=== PATIENT | female | born 1935 | race Caucasian/White ===

== ENCOUNTER → 2016-12-15 | Outpatient (CLI) | payer OTHER, MEDICARE ==
[~2016-12-15] MED LIST: ASPEC81 PO; CALC750T PO; FURO40TA3 PO; MCRK20 PO; PRLSR20 PO
[2016-12-15 13:27] LABS: BASO % 0.5 %; BASO ABS # 0.03 K/uL (0-0.2); COMPLETE YES; EOS % 1.5 %; HEMATOCRIT 42.5 % (37-47); IG% 0.2 %; LYMPH % 35.5 %; LYMPH ABS # 1.95 K/uL (1.2-3.4); MEAN CORPUSCULAR HEMOGLOBIN 30.7 pg (25-34); MEAN CORPUSCULAR HGB CONC 33.4 g/dl (32-36); MEAN PLATELET VOLUME 10.8 fL (7.4-10.4); MONO % 8.7 %; NEUT % 53.6 %; PLATELET COUNT 264 K/uL (130-400); RED BLOOD COUNT 4.62 M/uL (4.2-5.4); WHITE BLOOD COUNT 5.49 K/uL (4.8-10.8)
[2016-12-15 13:54] LABS: ALT/SGPT 24 U/L (12-78); AST/SGOT 17 U/L (15-37); BLOOD UREA NITROGEN 17 mg/dl (7-18); BUN/CREATININE RATIO 20.5 (10-20); CARBON DIOXIDE 29 mmol/L (21-32); CHLORIDE 108 mmol/L (98-107); CREATININE 0.84 mg/dl (0.60-1.20); GLUCOSE 90 mg/dl (70-99); POTASSIUM 3.9 mmol/L (3.5-5.1); SODIUM 144 mmol/L (136-145)
[2016-12-15 14:04] LABS: ALKALINE PHOSPHATASE 53 U/L (45-117); CHOLESTEROL 231 mg/dl (0-200); CHOLESTEROL/HDL RATIO 3.2; HDL CHOLESTEROL 72 mg/dl; TRIGLYCERIDES 125 mg/dl (0-150); VERY LOW DENSITY LIPOPROT CALC 25 mg/dl
== END | disposition home or self-care (01) ==
LOC: C.LABSPEC 12:37
PROVIDERS: ATTEND Internal Medicine
DX: E78.5 Hyperlipidemia, unspecified (principal); M19.90 Unspecified osteoarthritis, unspecified site; E55.9 Vitamin D deficiency, unspecified; R60.9 Edema, unspecified

== ENCOUNTER → 2016-12-19 | Outpatient (CLI) | payer OTHER, MEDICARE | END | disposition home or self-care (01) | LOC: C.LABSPEC 14:54 | PROVIDERS: ATTEND Internal Medicine | DX: Z12.11 Encounter for screening for malignant neoplasm of colon (principal) ==

== ENCOUNTER → 2017-01-12 | Outpatient (CLI) | payer OTHER, MEDICARE ==
[~2017-01-12] MED LIST changes: -PRLSR20 PO
--- NOTE | 2017-01-13 13:08 | MAMMOGRAPHY REPORT ---
BILATERAL DIGITAL SCREENING MAMMOGRAM WITH CAD: 01/12/2017 CLINICAL HISTORY: Routine screening. TECHNIQUE: Bilateral CC and MLO views were obtained. Current study was also evaluated with a Comput er Aided Detection (CAD) system. COMPARISON: Comparison is made to exams dated: 01/10/2016 mammogram, 05/18/2014 mammogram, 03/08/2013 m ammogram, 01/06/2012 mammogram, 10/14/2010 mammogram, and 10/10/2009 mammogram - [facility]. BREAST COMPOSITION: There are scattered areas of fibroglandular density in both breasts. FINDINGS: There are mild vascular calcifications and scattered stable benign-appearing microcalcific ations in the breasts. A focal asymmetry in the upper outer anterior left breast is stable in size dating back to at least 08/24/2007, therefore likely benign. There is also stable left subareolar a symmetry. No new suspicious mass, architectural distortion or cluster of microcalcifications is see n. IMPRESSION: ACR BI-RADS CATEGORY 1: NEGATIVE There is no mammographic evidence of malignancy. A 1 year screening mammogram is recommended. The p atient will receive written notification of the results. Approximately 10% of breast cancers are not detected with mammography. A negative mammographic repor t should not delay biopsy if a clinically suggestive mass is present. Graciela Delacruz M.D. ay/:01/12/2017 16:25:39 Supervisor Process Testing: Angie SHERMAN)([place]), [facility] letter sent: Normal 1/2 BI-RADS Code: ACR BI-RADS Category 1: Negative
== END | disposition home or self-care (01) ==
LOC: C.MAMM 14:34
PROVIDERS: ATTEND Internal Medicine
DX: Z12.31 Encounter for screening mammogram for malignant neoplasm of breast (principal)

== ENCOUNTER → 2017-03-03 | Outpatient (CLI) | payer OTHER, MEDICARE ==
[2017-03-03 14:36] LABS: THYROID STIMULATING HORMONE 1.25 uIu/ml (0.300-4.500)
== END | disposition home or self-care (01) ==
LOC: C.LABSPEC 12:13
PROVIDERS: ATTEND Internal Medicine
DX: E03.9 Hypothyroidism, unspecified (principal)

== ENCOUNTER → 2017-06-25 | Outpatient (CLI) | payer OTHER, MEDICARE ==
[2017-06-25 13:16] LABS: BLOOD UREA NITROGEN 14 mg/dl (7-18); BUN/CREATININE RATIO 18.2 (10-20); CALCIUM 8.8 mg/dl (8.5-10.1); CARBON DIOXIDE 27 mmol/L (21-32); CHLORIDE 109 mmol/L (98-107); CREATININE 0.76 mg/dl (0.60-1.20); GLUCOSE 90 mg/dl (70-99); SODIUM 142 mmol/L (136-145)
== END | disposition home or self-care (01) ==
LOC: C.LABSPEC 12:17
PROVIDERS: ATTEND Internal Medicine
DX: E03.9 Hypothyroidism, unspecified (principal); R60.9 Edema, unspecified

== ENCOUNTER → 2018-01-05 | Outpatient (CLI) | payer OTHER, MEDICARE ==
[2018-01-05 12:47] LABS: BASO % 0.7 %; BASO ABS # 0.04 K/uL (0-0.2); EOS % 1.1 %; EOS ABS # 0.06 K/uL (0-0.5); HEMATOCRIT 43.2 % (37-47); HEMOGLOBIN 14.4 g/dL (12.0-16.0); IG# 0.03 K/uL (0.00-0.02); LYMPH % 37.6 %; LYMPH ABS # 2.02 K/uL (1.2-3.4); MEAN CELL VOLUME 93.5 fL (80-100); MEAN CORPUSCULAR HEMOGLOBIN 31.2 pg (25-34); MEAN CORPUSCULAR HGB CONC 33.3 g/dl (32-36); MEAN PLATELET VOLUME 10.3 fL (7.4-10.4); MONO % 9.7 %; MONO ABS # 0.52 K/uL (0.11-0.59); NEUT % 50.3 %; PLATELET COUNT 299 K/uL (130-400); RED CELL DISTRIBUTION WIDTH CV 13.7 % (11.5-14.5); RED CELL DISTRIBUTION WIDTH SD 46.8 fL (36.4-46.3); WHITE BLOOD COUNT 5.37 K/uL (4.8-10.8)
[2018-01-05 12:58] LABS: ALBUMIN 3.6 gm/dl (3.4-5.0); ALT/SGPT 26 U/L (12-78); AST/SGOT 18 U/L (15-37); BLOOD UREA NITROGEN 12 mg/dl (7-18); CALCIUM 8.9 mg/dl (8.5-10.1); CARBON DIOXIDE 29 mmol/L (21-32); CHOLESTEROL 213 mg/dl (0-200); CREATININE 0.89 mg/dl (0.60-1.20); GLUCOSE 88 mg/dl (70-99); POTASSIUM 3.9 mmol/L (3.5-5.1); SODIUM 141 mmol/L (136-145)
[2018-01-05 13:08] LABS: ALKALINE PHOSPHATASE 55 U/L (45-117); LDL CHOLESTEROL (DIRECT) 139 mg/dl; TOTAL PROTEIN 7.2 gm/dl (6.4-8.2)
== END | disposition home or self-care (01) ==
LOC: C.LABSPEC 12:25
PROVIDERS: ATTEND Internal Medicine
DX: R60.0 Localized edema (principal); E78.5 Hyperlipidemia, unspecified; M19.90 Unspecified osteoarthritis, unspecified site; E03.9 Hypothyroidism, unspecified; E55.9 Vitamin D deficiency, unspecified

== ENCOUNTER 2019-04-05 17:30 | Inpatient (IN) ==
[2019-04-05] MEDS ORDERED: ONDANSETRON INJ 2 MG/ML 2 ML VIAL IV STA (17:56)
[2019-04-05] MEDS ORDERED: MoRPHine SULFATE 4 MG/ML 1 ML CARP\\VIAL IV PRN (17:56)
[2019-04-05] MEDS ORDERED: SODIUM CHLORIDE 0.9% 1000ML 1,000 ML IV SCH (18:00)
[2019-04-05 18:28] LABS: Basophils # (auto) 0.02 K/uL (0-0.2); Basophils % (auto) 0.3 %; Eosinophils # (auto) 0.08 K/uL (0-0.5); Eosinophils % (auto) 1.1 %; Hematocrit (blood only) 38.6 % (37-47); Hemoglobin 12.9 g/dL (12.0-16.0); Immature Granulocytes # (auto) 0.04 K/uL (0.00-0.02); Immature Granulocytes % (auto) 0.5 %; Lymphocytes # (auto) 1.53 K/uL (1.2-3.4); Lymphocytes % (auto) 20.6 %; Mean Corpuscular Hgb Conc 33.4 g/dL (32-36); Mean Corpuscular Volume 92.8 fL (80-100); Mean Platelet Volume 9.7 fL (7.4-10.4); Monocytes # (auto) 0.75 K/uL (0.11-0.59); Monocytes % (auto) 10.1 %; Neutrophils # (auto) 4.99 K/uL (1.4-6.5); Neutrophils % (auto) 67.4 %; Platelet Count 340 K/uL (130-400); RDW Coefficient of Variation 14.7 % (11.5-14.5); Red Blood Count 4.16 M/uL (4.2-5.4); White Blood Count 7.41 K/uL (4.8-10.8)
--- NOTE | 2019-04-05 18:41 | History & Physical Report ---
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 Comfort measures with intravenous morphine as needed and troll antiemetics as needed. Oncology consultation. Consider hospice consultation tomorrow Present on Admission?: Yes (2) Intractable pain: Due to pancreatic cancer. Parenteral narcotics as needed for pain control Present on Admission?: Yes (3) DVT prophylaxis: Lovenox subcu (4) DNR (do not resuscitate): Per patient and family request History of Present Illness Chief Complaint: Back pain, anorexia, weight loss Primary Care Provider: Esau Malloy MD 83-year-old female with a history of pancreatic cancer. She underwent a Whipple's procedure in [place] in January of this year. She has not felt well since that time and has lost 40 pounds over the past several months. She has had progressively worsening mid back pain with anorexia and nausea. 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 She presents to the ED for pain control measures and will be placed in observation status with IV fluids and parenteral narcotics for pain control measures. Oncology consultation has been requested. Hospice consultation can be obtained tomorrow. She is a DNR patient. Allergies Allergy/AdvReac Type Severity Reaction Status Date / Time Sulfa (Sulfonamide Allergy Intermediate Rash Verified 04/05/19 18:03 Antibiotics) grass pollen-perennial rye, Allergy Unknown GRASS Verified 04/05/19 18:03 standar POLLEN-MILD ASTHMA latex Allergy Unknown STUFFY Verified 04/05/19 18:03 NOSE, SWOLLEN EYES cat dander Allergy Sneezing Verified 04/05/19 18:03 ciprofloxacin [From Cipro] AdvReac Weakness Verified 04/05/19 18:03 Home Medications Home Medications Medication Instructions Recorded Confirmed Type docusate sodium 100 mg PO BID 02/02/19 04/05/19 History Creon 1 cap PO AC 03/02/19 04/05/19 History acetaminophen 1,000 mg PO Q6H PRN 03/02/19 04/05/19 History Past Med/Surg History Social History Preferred Language: Japanese Communication Ability: Effective Beliefs That Will Affect Care: None Current Living Situation: Significant Other Feels Safe at Home: Yes Smoking Status: Never smoker Second Hand Exposure: No Hx Alcohol Use: No Hx Substance Use: No Review of Systems Review of Systems: Constitutional-no fever or chills. Weight loss, anorexia, malaise ENT-no blurred vision, no double vision, no epistaxis, no sore throat Respiratory-no cough, no wheezing, no shortness of breath Cardiac-no palpitations, no chest pain, no syncope GI-no diarrhea, melena, hematochezia. She has had some intermittent nausea and vomiting -no urinary retention, no urinary incontinence, no dysuria, no hematuria Musculoskeletal-no joint pain, no muscle tenderness Skin-no bruising, no rashes, no pruritus Neuro-no isolated weakness, no paresthesia, no weakness Psych-no depression, no anxiety Physical Exam Physical Exam: General-alert and oriented x3, no fevers, no chills HEENT-head atraumatic and normocephalic, TMs intact bilaterally, pupils equal and reactive to light, extraocular muscles intact Neck-no lymphadenopathy or thyromegaly, trachea midline Chest-clear to auscultation percussion. No rales wheezing or rhonchi Cardiac-regular rate and rhythm, normal S1 and S2, no murmurs Abdomen-normal bowel sounds, no hepatosplenomegaly. Some bloating. Mild epigastric discomfort. No masses rebound or guarding Extremities-no cyanosis, clubbing, or edema Neuro-cranial nerves II through XII intact, motor and sensory function within normal limits, strength symmetrical , no focal deficits Psych-depressed affect Results & Data Vital Signs (Past 12 Hours) Vital Signs Temp Pulse Resp BP Pulse Ox 04/05/19 17:57 95 04/05/19 17:35 36.2 C L 88 16 132/76 95 Diagnostic Findings Laboratory Results WBC 7.41 K/uL (4.8-10.8) 04/05/19 18:05 RBC 4.16 M/uL (4.2-5.4) L 04/05/19 18:05 Hgb 12.9 g/dL (12.0-16.0) 04/05/19 18:05 Hct 38.6 % (37-47) 04/05/19 18:05 MCV 92.8 fL (80-100) 04/05/19 18:05 MCH 31.0 pg (25-34) 04/05/19 18:05 MCHC 33.4 g/dL (32-36) 04/05/19 18:05 RDW Std Deviation 50.0 fL (36.4-46.3) H 04/05/19 18:05 RDW Coeff of Dennis 14.7 % (11.5-14.5) H 04/05/19 18:05 Plt Count 340 K/uL (130-400) 04/05/19 18:05 MPV 9.7 fL (7.4-10.4) 04/05/19 18:05 Immature Gran % (Auto) 0.5 % 04/05/19 18:05 Neut % (Auto) 67.4 % 04/05/19 18:05 Lymph % (Auto) 20.6 % 04/05/19 18:05 [place] % (Auto) 10.1 % 04/05/19 18:05 Eos % (Auto) 1.1 % 04/05/19 18:05 Baso % (Auto) 0.3 % 04/05/19 18:05 Immature Gran # (Auto) 0.04 K/uL (0.00-0.02) H 04/05/19 18:05 Neut # (Auto) 4.99 K/uL (1.4-6.5) 04/05/19 18:05 Lymph # (Auto) 1.53 K/uL (1.2-3.4) 04/05/19 18:05 [place] # (Auto) 0.75 K/uL (0.11-0.59) H 04/05/19 18:05 Eos # (Auto) 0.08 K/uL (0-0.5) 04/05/19 18:05 Baso # (Auto) 0.02 K/uL (0-0.2) 04/05/19 18:05 PG Care Time/CCT Total # of Minutes Spent Total Time Spent with Patient: Total time spent is greater than 50% in coordination of care (as documented) at patient's floor/unit and/or counseling patient:
[2019-04-05 18:43] LABS: Alanine Aminotransferase 40 U/L (12-78); Aspartate Aminotransferase 24 U/L (15-37); BUN Creatinine Ratio 23.3 (10-20); Blood Urea Nitrogen 14 mg/dl (7-18); Calcium 9.2 mg/dl (8.5-10.1); Carbon Dioxide 27 mmol/L (21-32); Chloride 107 mmol/L (98-107); Creatinine Clr Calc Pharmacy 65.2 ml/min; Est GFR (African American) 100.2; Est GFR (Non-African American) 86.4; Glucose 102 mg/dl (70-99); Magnesium 2.2 mg/dl (1.8-2.4); Potassium 3.8 mmol/L (3.5-5.1); Sodium 141 mmol/L (136-145)
[2019-04-05 18:48] LABS: Albumin Globulin Ratio 0.8 (0.9-2); Alkaline Phosphatase 91 U/L (45-117); Bilirubin,Total 0.4 mg/dl (0.2-1); Globulin 3.7 gm/dl (2.5-4.0); Total Protein 6.7 gm/dl (6.4-8.2); Troponin I < 0.015 ng/ml (0-0.045)
--- NOTE | 2019-04-05 19:04 | Emergency Department Note ---
Entered by Cinda Blanc acting as a scribe for Elias Cardona MD History of Present Illness General Chief complaint: Abdominal Pain Stated complaint: PAIN IN ABDOMEN AROUND TO BACK Time Seen by Provider: 04/05/19 17:48 Source: patient History of Present Illness Onset (ago): month(s) Location: abdomen Radiation: back Pain Consistency: + other (worsening) Maximum Pain Intensity: 8 Current Pain Intensity: 8 Associated symptoms: + loss of appetite, + nausea/vomiting and + other (+diarrhea; -urinary symptoms); no fever/chills and no shortness of breath The patient is an 83 year old female who presents to the Emergency Room with complaints of worsening abdominal pain that she rates as 8/10 in severity. The patient states that the abdominal pain radiates to her back. The patient also notes lack of appetite, vomiting, and diarrhea. The patient notes prior tumor removal for pancreatic cancer followed by whipple procedure in January. The patient's primary care provider issued a CT scan for her abdomen yesterday. The patient denies fever, shortness of breath, or urinary symptoms. The patient notes of a cholecystectomy in the past. Home Medications Home Medications Medication Instructions Recorded Confirmed Type docusate sodium 100 mg PO BID 02/02/19 04/05/19 History Creon 1 cap PO AC 03/02/19 04/05/19 History acetaminophen 1,000 mg PO Q6H PRN 03/02/19 04/05/19 History Allergies Allergy/AdvReac Type Severity Reaction Status Date / Time Sulfa (Sulfonamide Allergy Intermediate Rash Verified 04/05/19 18:03 Antibiotics) grass pollen-perennial rye, Allergy Unknown GRASS Verified 04/05/19 18:03 standar POLLEN-MILD ASTHMA latex Allergy Unknown STUFFY Verified 04/05/19 18:03 NOSE, SWOLLEN EYES cat dander Allergy Sneezing Verified 04/05/19 18:03 ciprofloxacin [From Cipro] AdvReac Weakness Verified 04/05/19 18:03 Past Med/Surg History Medical History Intractable pain (Acute) Local recurrence of pancreatic cancer (Acute) Arthritis GERD (gastroesophageal reflux disease) History of pancreatic cancer HAD WHIPPLES PROCEDURE - [facility]; WILL BE ON CHEMO AFTER PORT INSERTION Hypothyroidism Surgical History History of hand surgery LEFT THUMB History of hysterectomy History of knee replacement BOTH History of pancreatic surgery History of repair of rectocele Hx of arthroscopic knee surgery Hx of hemorrhoidectomy Hx of shoulder surgery BOTH Hx of tonsillectomy Family History Father Family history of diabetes mellitus Other Heart disease Social History Preferred Language: Guatemalan Communication Ability: Effective Beliefs That Will Affect Care: None Current Living Situation: Significant Other Feels Safe at Home: Yes Smoking Status: Never smoker Second Hand Exposure: No Hx Alcohol Use: No Hx Substance Use: No Review of Systems See HPI for pertinent positives & negatives. and A total of 10 systems reviewed and were otherwise negative Physical Exam Vital Signs Vital Signs - 24 hr 04/05/19 17:35 04/05/19 17:57 Temperature 36.2 C L Temperature Source Oral Sepsis Recent Fever Within 48 Hours No Sepsis Action Taken by Nursing No Action Required Pulse Rate 88 Respiratory Rate 16 Respiratory Effort / Characteristics Non-Labored Spontaneous Respiratory Depth Normal Blood Pressure 132/76 Blood Pressure Mean 94 Blood Pressure Position Lying Pulse Oximetry 95 95 Oxygen Delivery Method Room Air Room Air GENERAL: Patient is in no acute distress. HEENT: No acute trauma, normocephalic atraumatic, mucous membranes moist, no nasal congestion, no scleral icterus. NECK: No stridor, no adenopathy, no meningismus, trachea is midline. LUNGS: Clear to auscultation bilaterally, no wheeze, no rhonchi, breath sounds equal. HEART: Without murmurs gallops or rubs, regular rate and rhythm. ABDOMEN: Soft, moderately tender in epigastric region, bowel sounds positive, no hernias, no peritonitis. Surgical wounds healing well. EXTREMITIES: No cyanosis or edema, full range of motion of all the joints without pain or difficulty, no signs for acute trauma. NEUROLOGIC: Oriented x 3, no acute motor or sensory deficits, no focal weakness. SKIN: No rash, no jaundice, no diaphoresis. Course 1749: Past medical records reviewed. The patient was evaluated in room B8. A complete history and physical exam was performed. 1804: I discussed the case with Dr. Reed-Hematology. We agreed that the patient should be further evaluated. 1807: I discussed the patient's case with Dr. Carpenter-[facility] Hospitalist. agrees to further evaluate patient. Consultations Consultation #1: I discussed the case with Dr. Reed-Hematology. We agreed that the patient should be further evaluated. Time: 18:05 Consultation #2: I discussed the patient's case with Dr. Carpenter-[facility] Hospitalist. agrees to further evaluate patient. Time: 18:08 Administered Medications Discontinued Medications Sodium Chloride (Nss 1000ml) 1,000 mls @ 999 mls/hr IV .Q1H1M CH[place]STIANA Stop: 04/05/19 19:00 Last Infusion: 04/05/19 19:54 Dose: 0 mls/hr Documented by: [id number] Admin: 04/05/19 18:47 Dose: 999 mls/hr Documented by: [id number] Morphine Sulfate (Morphine Sulfate) 4 mg IV Q30M PRN PRN Reason: Pain Stop: 04/19/19 17:55 Last Admin: 04/05/19 18:48 Dose: 4 mg Documented by: [id number] Ondansetron HCl (Zofran) 4 mg IV NOW STA Stop: 04/05/19 17:57 Last Admin: 04/05/19 18:48 Dose: 4 mg Documented by: [id number] Medical Decision Making Differential Diagnosis Differential diagnoses include dehydration, bowel obstruction, bowel ischemia, recurrent cancer, abscess, urinary tract infection, pancreatitis, bowel rupture, renal failure, liver failure. Medical Records Attestation: I reviewed the patient's medical records. Home Medications Current Medication List: was personally reviewed by me Laboratory Data Attestation: I reviewed the patient's lab results. Result diagrams: 04/05/19 18:05 04/05/19 18:05 Lab Results 04/05/19 04/05/19 Range/Units 18:05 18:05 WBC 7.41 (4.8-10.8) K/uL RBC 4.16 L (4.2-5.4) M/uL Hgb 12.9 (12.0-16.0) g/dL Hct 38.6 (37-47) % MCV 92.8 (80-100) fL MCH 31.0 (25-34) pg MCHC 33.4 (32-36) g/dL RDW Std Deviation 50.0 H (36.4-46.3) fL RDW Coeff of Dennis 14.7 H (11.5-14.5) % Plt Count 340 (130-400) K/uL MPV 9.7 (7.4-10.4) fL Immature Gran % (Auto) 0.5 % Neut % (Auto) 67.4 % Lymph % (Auto) 20.6 % [place] % (Auto) 10.1 % Eos % (Auto) 1.1 % Baso % (Auto) 0.3 % Immature Gran # (Auto) 0.04 H (0.00-0.02) K/uL Neut # (Auto) 4.99 (1.4-6.5) K/uL Lymph # (Auto) 1.53 (1.2-3.4) K/uL [place] # (Auto) 0.75 H (0.11-0.59) K/uL Eos # (Auto) 0.08 (0-0.5) K/uL Baso # (Auto) 0.02 (0-0.2) K/uL Sodium 141 (136-145) mmol/L Potassium 3.8 (3.5-5.1) mmol/L Chloride 107 (98-107) mmol/L Carbon Dioxide 27 (21-32) mmol/L Anion Gap 7.0 (3-11) BUN 14 (7-18) mg/dl Creatinine 0.58 L (0.6-1.2) mg/dl Est Cr Clr Drug Dosing 65.2 ml/min Est GFR ( Amer) 100.2 Est GFR (Non-Af Amer) 86.4 BUN/Creatinine Ratio 23.3 H (10-20) Glucose 102 H (70-99) mg/dl Calcium 9.2 (8.5-10.1) mg/dl Magnesium 2.2 (1.8-2.4) mg/dl Total Bilirubin 0.4 (0.2-1) mg/dl AST 24 (15-37) U/L ALT 40 (12-78) U/L Alkaline Phosphatase 91 (45-117) U/L Troponin I < 0.015 (0-0.045) ng/ml Total Protein 6.7 (6.4-8.2) gm/dl Albumin 3.0 L (3.4-5.0) gm/dl Globulin 3.7 (2.5-4.0) gm/dl Albumin/Globulin Ratio 0.8 L (0.9-2) Lipase 21 L (73-393) U/L ECG Data Indication: abdominal pain Rate (beats per minute): 65 Rhythm: normal sinus Findings: + RBBB (incomplete) and + T-wave inversion (anterior and lateral leads) Comparison ECG Date: from (06/27/16) Change: no significant change Blood Pressure Blood Pressure Findings: Elevated blood pressure Blood Pressure Disposition: further management by hospitalist MDM Narrative There is no leukocytosis or concerning anemia. No significant electrolyte abnormality or kidney failure. No elevation to the liver enzymes. Lipase was not elevated. Cardiac enzyme testing x1 is not consistent with acute cardiac injury. EKG shows a sinus rhythm, no acute ischemia. No change when compared to previous EKGs. On exam, the patient was tender in the epigastrium, she was not febrile, she was not toxic. I was able to review the CT scans that were performed yesterday. Patient appears to have recurrence of her cancer with thrombosis of the superior mesenteric vein. The chest CT did not show pneumonia or any evidence for metastatic disease. Patient received IV saline, she was given IV morphine for pain, IV Zofran for nausea. I spoke with Dr. Garcia of hematology oncology. Patient is to be hospitalized for pain management and further work-up. How to care for this recurrent cancer and her findings on CT is needed with this hospital stay. There was no emergent need for transfer to a tertiary care center. The patient was informed of her results, I did speak with case management. The on-call hospitalist was consulted. Impression & Plan Abdominal pain, epigastric, Vomiting, Dehydration, Pancreatic cancer Discharge Plan Visit Data Chief Complaint: Abdominal Pain Stated Complaint: PAIN IN ABDOMEN AROUND TO BACK ED Provider: Elias Cardona Discharge Problem: Abdominal pain, epigastric, Vomiting, Dehydration, Pancreatic cancer Patient Disposition: Being Evaluated by Hospitalist Discharge Instructions Interventions: ED Discharge Assessment Last Done: 04/05/19 19:46 Discharge Problem: Vomiting Qualifiers: Vomiting type: unspecified Vomiting Intractability: non-intractable Nausea presence: with nausea Qualified Code(s): R11.2 - Nausea with vomiting, unspecified Pancreatic cancer Qualifiers: Pancreatic malignancy location: unspecified Qualified Code(s): C25.9 - Malignant neoplasm of pancreas, unspecified The scribe's documentation has been prepared under my direction and personally reviewed by me in its entirety. I confirm that the note above accurately reflects all work, treatment, procedures, and medical decision making performed by me.
[2019-04-05] MEDS ORDERED: ALUMINUM/MAGNESIUM SUSP 30 ML UDC PO PRN (20:00)
[2019-04-05] MEDS ORDERED: ACETAMINOPHEN 325 MG TAB PO PRN (20:00)
[2019-04-05] MEDS ORDERED: ONDANSETRON INJ 2 MG/ML 2 ML VIAL IV PRN (20:00)
[2019-04-05] MEDS: MoRPHine SULFATE 2 MG/ML CARP IV PRN ×2 (20:29→23:22)
[2019-04-05] MEDS: SODIUM CHLORIDE 0.9% 1000ML 1,000 ML IV SCH (20:29)
[2019-04-05 20:45] LABS: Prothrombin Time 10.5 Seconds (9.0-12.0)
[2019-04-05 20:53] LABS: Albumin Level 2.9 gm/dl (3.4-5.0); BUN Creatinine Ratio 24.3 (10-20); Calcium 8.7 mg/dl (8.5-10.1); Creatinine Clr Calc Pharmacy 75.6 ml/min; Est GFR (African American) 105.2; Est GFR (Non-African American) 90.8; Potassium 3.6 mmol/L (3.5-5.1)
[2019-04-05 20:56] LABS: Albumin Globulin Ratio 0.9 (0.9-2); Bilirubin,Total 0.3 mg/dl (0.2-1); Globulin 3.3 gm/dl (2.5-4.0); Total Protein 6.2 gm/dl (6.4-8.2)
[2019-04-05] MEDS ORDERED: ENOXAPARIN INJ 40 MG/0.4 ML SYR SQ SCH (21:00)
[2019-04-05] MEDS: DOCUSATE SODIUM 100 MG CAP PO SCH (23:22)
[2019-04-06] MEDS ORDERED: HEPARIN 100 UNIT/ML 5ML FLUSH FLUSH PRN (00:22)
[2019-04-06] MEDS: MoRPHine SULFATE 2 MG/ML CARP IV PRN ×5 (02:23→20:38)
[2019-04-06 02:48] LABS: Appearance Urine Clear (Clear); Bacteria Urine Automated Negative (Negative); Bilirubin Urine Negative (Negative); Blood Urine Negative (Negative); Color Urine Yellow; Epithelial Cell Urine Auto >30 /lpf (0-5); Glucose Urine UA Negative (Negative); Ketones Urine Trace (Negative); Leukocyte Esterase Urine Trace (Negative); Nitrite Urine Negative (Negative); Protein Urine Negative (Negative); RBC Urine Automated 0-4 /hpf (0-4); Urobilinogen Urine Negative (Negative)
--- NOTE | 2019-04-06 07:41 | Hospitalist Progress Note ---
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 Comfort measures with intravenous morphine as needed and troll antiemetics as needed. Oncology consultation. Consider hospice consultation tomorrow (2) Intractable pain: Due to pancreatic cancer. Parenteral narcotics as needed for pain control (3) DVT prophylaxis: Lovenox subcu (4) DNR (do not resuscitate): Per patient and family request Results & Data Vital Signs (Past 12 Hours) Vital Signs Temp Pulse Resp BP Pulse Ox 04/06/19 03:49 36.5 C 68 18 128/72 94 04/05/19 23:04 36.5 C 77 18 147/75 H 94 04/05/19 20:00 36.4 C L 76 18 175/68 H 92 PG Care Time/CCT Total # of Minutes Spent Total Time Spent with Patient: Total time spent is greater than 50% in coordination of care (as documented) at patient's floor/unit and/or counseling patient:
[2019-04-06] MEDS: DOCUSATE SODIUM 100 MG CAP PO SCH ×2 (08:45→20:41)
[2019-04-06] MEDS: PANCREAZE (LIPASE 10,500U) CAP PO SCH ×3 (08:46→17:22)
[2019-04-06] MEDS: SODIUM CHLORIDE 0.9% 1000ML 1,000 ML IV SCH ×2 (09:07→20:40)
--- NOTE | 2019-04-06 09:28 | Oncology Consultation ---
Date of Consultation April 06, 2019 Assessment & Plan (1) Abdominal pain, epigastric: I reviewed her scans on Thursday when I saw the reports. The rate at which this soft tissue grew is very surprising, given that she had surgery less than 3 months ago. I had wondered whether it might represent post-surgical change or some other benign finding. However, we wouldn't expect vascular invasion by a benign process. Also, her persistent and worsening pain argues in favor of this being cancer. Her repeat CA 19-9, which is pending, will also be helpful in this regard. 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 This may be related to direct extension of tumor. The optimal management of these thromboses is not clear, particularly more chronic ones. This one is more acute, as it clearly was not present a few months ago, and it may be part of the source of her pain. There is better evidence for anticoagulating acute mesenteric thromboses, even those asssociated with cancers. She has no contraindications to AC so I would start her on full anticoagulation. I also would work on her pain regimen and consider a palliative care consult. She would be open to trying chemotherapy, so I will work on these arrangements as an outpatient. Present on Admission?: Yes History of Present Illness Reason for Consultation: Pancreatic cancer Abdominal Pain SMV thrombosis Attending Physician: Dariusz Walton MD History of Present Illness Ms. Ayoub is an 83 year old woman with a history of pancreatic cancer. She came to attention earlier this year with abdominal pain. A CT revealed a mass in her pancreatic head that appeared resectable. On 01/25/19, she underwent a Whipple at [facility] [place]. 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 All final margins were negative. I met her on 03/04/19 to discuss adjuvant chemotherapy. However, at that time her CA 19-9 was still over 100. As a result, I was concerned that she had persistent or recurrent disease. I asked her to return with repeat scans in about 4 weeks. 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 She called my office yesterday complaining of progressive abdominal pain, poor PO intake, and generalized weakness. I directed her to the ER. She is feeling better this morning. Her pain is better controlled with morphine. The pain has persisted since surgery and so she just assumed it was post-operative pain. She denies any bleeding anywhere. She does have some nausea, particularly when she eats. Allergies Allergy/AdvReac Type Severity Reaction Status Date / Time Sulfa (Sulfonamide Allergy Intermediate Rash Verified 04/05/19 18:03 Antibiotics) grass pollen-perennial rye, Allergy Unknown GRASS Verified 04/05/19 18:03 standar POLLEN-MILD ASTHMA latex Allergy Unknown STUFFY Verified 04/05/19 18:03 NOSE, SWOLLEN EYES cat dander Allergy Sneezing Verified 04/05/19 18:03 ciprofloxacin [From Cipro] AdvReac Weakness Verified 04/05/19 18:03 Home Medications Home Medications Medication Instructions Recorded Confirmed Type docusate sodium 100 mg PO BID 02/02/19 04/05/19 History Creon 1 cap PO AC 03/02/19 04/05/19 History acetaminophen 1,000 mg PO Q6H PRN 03/02/19 04/05/19 History Patient History Medical History Intractable pain (Acute) Local recurrence of pancreatic cancer (Acute) Arthritis GERD (gastroesophageal reflux disease) History of pancreatic cancer HAD WHIPPLES PROCEDURE - AYANNA; WILL BE ON CHEMO AFTER PORT INSERTION Hypothyroidism Surgical History History of hand surgery LEFT THUMB History of hysterectomy History of knee replacement BOTH History of pancreatic surgery History of repair of rectocele Hx of arthroscopic knee surgery Hx of hemorrhoidectomy Hx of shoulder surgery BOTH Hx of tonsillectomy Family History Father Family history of diabetes mellitus Other Heart disease Social History Preferred Language: Citizen Of [place] Communication Ability: Effective Chemistry Lab Instructor Required: No Beliefs That Will Affect Care: None Current Living Situation: Family Feels Safe at Home: Yes Safety Concerns: Feels Safe At This Time Smoking Status: Never smoker Do You Dip or Chew Tobacco: No Second Hand Exposure: No Tobacco Cessation Education Requested by Patient: No Hx Alcohol Use: No Hx Substance Use: No Review of Systems Constitutional: + fatigue, + weakness and + anorexia Respiratory: no cough and no dyspnea Cardiovascular: no chest pain and no edema Gastrointestinal: as per Subjective / HPI Genitourinary: no dysuria and no urinary frequency Musculoskeletal: no back pain Neurologic: + generalized weakness; no headache(s) Physical Exam Constitutional: + thin and comfortable; no acute distress Eyes: + anicteric sclerae and EOM intact bilaterally ENMT: external ear and nose normal, oropharynx normal Respiratory: normal respiratory effort, lungs clear to auscultation Cardiovascular: RRR, no murmur, no edema Gastrointestinal (Abdomen): Inspection/Auscultation: normal bowel sounds; ab domen not distended Percussion/Palpation: abdomen soft; abdomen nontender Skin: no rashes, warm and dry Psychiatric: A+Ox3, euthymic affect Results & Data Vital Signs (Past 12 Hours) Vital Signs Temp Pulse Resp BP Pulse Ox 04/06/19 07:42 36.7 C 74 18 138/73 95 04/06/19 03:49 36.5 C 68 18 128/72 94 04/05/19 23:04 36.5 C 77 18 147/75 H 94 Laboratory Results Abnormal lab results 04/05/19 04/05/19 04/05/19 Range/Units 18:05 18:05 20:27 RBC 4.16 L (4.2-5.4) M/uL RDW Std Deviation 50.0 H (36.4-46.3) fL RDW Coeff of Dennis 14.7 H (11.5-14.5) % Immature Gran # (Auto) 0.04 H (0.00-0.02) K/uL Grainger # (Auto) 0.75 H (0.11-0.59) K/uL Chloride 109 H (98-107) mmol/L Creatinine 0.58 L 0.50 L (0.6-1.2) mg/dl BUN/Creatinine Ratio 23.3 H 24.3 H (10-20) Glucose 102 H (70-99) mg/dl Total Protein 6.2 L (6.4-8.2) gm/dl Albumin 3.0 L 2.9 L (3.4-5.0) gm/dl Albumin/Globulin Ratio 0.8 L (0.9-2) Lipase 21 L (73-393) U/L Urine Ketones (Negative) Ur Leukocyte Esterase (Negative) Urine WBC (Auto) (0-5) /hpf U Hyaline Cast (Auto) (0-5) /lpf U Epithel Cells (Auto) (0-5) /lpf 04/06/19 Range/Units 02:38 RBC (4.2-5.4) M/uL RDW Std Deviation (36.4-46.3) fL RDW Coeff of Dennis (11.5-14.5) % Immature Gran # (Auto) (0.00-0.02) K/uL Grainger # (Auto) (0.11-0.59) K/uL Chloride (98-107) mmol/L Creatinine (0.6-1.2) mg/dl BUN/Creatinine Ratio (10-20) Glucose (70-99) mg/dl Total Protein (6.4-8.2) gm/dl Albumin (3.4-5.0) gm/dl Albumin/Globulin Ratio (0.9-2) Lipase (73-393) U/L Urine Ketones Trace H (Negative) Ur Leukocyte Esterase Trace H (Negative) Urine WBC (Auto) 10-30 H (0-5) /hpf U Hyaline Cast (Auto) 5-10 H (0-5) /lpf U Epithel Cells (Auto) >30 H (0-5) /lpf Diagnostic Findings CT A/P, 04/04/19: IMPRESSION: 1. Postsurgical changes of a prior Whipple's procedure 2. There are findings concerning for recurrent neoplasm with increasing soft tissue at the level of the resected pancreatic head. There is encasement of superior mesenteric vein which is thrombosed. There is encasement of the splenoportal confluence. There is partial encasement of the superior mesenteric artery. There are small peritoneal nodules along the medial aspect of the liver.
[2019-04-06] MEDS ORDERED: ENOXAPARIN 1 MG/KG SQ SCH (10:00)
[2019-04-06] MEDS: ENOXAPARIN INJ 60 MG/0.6 ML SYR SQ SCH ×2 (11:01→20:42)
[2019-04-06] MEDS ORDERED: BISACODYL 10 MG SUPP PR ONE (22:05)
[2019-04-07] MEDS: MoRPHine SULFATE 2 MG/ML CARP IV PRN ×2 (05:45→12:28)
[2019-04-07] MEDS: ENOXAPARIN INJ 60 MG/0.6 ML SYR SQ SCH ×2 (08:16→20:13)
[2019-04-07] MEDS: PANCREAZE (LIPASE 10,500U) CAP PO SCH ×3 (08:16→17:30)
[2019-04-07] MEDS: DOCUSATE SODIUM 100 MG CAP PO SCH ×2 (08:16→20:12)
[2019-04-07] MEDS: SODIUM CHLORIDE 0.9% 1000ML 1,000 ML IV SCH ×2 (08:19→19:22)
[2019-04-07] MEDS ORDERED: POLYETHYLENE (MIRALAX) 17 GM PACK PO ONE (08:58)
[2019-04-07] MEDS ORDERED: fentaNYL 12 MCG/HR TDSY TD SCH (11:00)
--- NOTE | 2019-04-07 12:25 | Hospitalist Progress Note ---
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 Oncology consultation is considering salvage palliative chemotherapy Plan of care consultations to discuss goals of care Therapeutic Lovenox dosing has been ordered patient's comfortable with Lovenox dosing for home (2) Intractable pain: Due to pancreatic cancer. Patient is agreeable to topical fentanyl will employ scheduled Tylenol and as needed oxycodone opiates (3) DVT prophylaxis: Therapeutic Lovenox subcu (4) DNR (do not resuscitate): Per patient and family request Subjective Patient has occasional intermittent abdominal pain she is tearful today trying to determine the course of action to move forward with regard to her recurrent pancreatic cancer. She did already speak to Dr. Garcia who is offering her chemotherapy but she is not quite sure she wants to pursue that route. She is agreeable to talk to palliative care today to discuss goals of care. Her other big issue remains of constipation and we are trying to use MiraLAX but if this does not work we may proceed to a more aggressive means. Daughter and are at the bedside and updated Review of Systems Review of Systems: ROS: well nourished well developed. She is in mild to moderate discomfort No double vision blurry vision No problems with speech or swallowing No palpitations, chest pain or pressure No Wheezing or breathing issues Centralized and left upper quadrant abdominal pain without nausea No burning urine urine frequency or changes in color No focal joint pain or muscle pain No skin rashes or oral lesions No unusual bruising or bleeding No focused back pain or numbness or loss of strength No changes in memory or confusion Physical Exam Physical Exam: The patient appeared well nourished and normally developed. Vital signs as documented. Head exam is unremarkable. normocephalic, atraumatic Neck is without jugular venous distension, thyromegaly, or lymphademopathy Lungs are clear to auscultation and percussion. Cardiac exam reveals Rhythm is regular. First and second heart sounds normal. Abdominal exam reveals hypoactive bowel sounds, no distention no significant tympany no guarding Extremities are nonedematous and both pedal pulses are present Neurologic exam is A&Ox3, no focal deficits, strength is equal bilateral Psychologically seems neither anxious or depressed Skin is warm Dry without bruises or lesions Results & Data Vital Signs (Past 12 Hours) Vital Signs Temp Pulse Resp BP BP Pulse Ox 07/25/19 07:49 36.8 C 67 18 153/69 H 94 04/07/19 00:27 36.6 C 76 16 153/74 H 92 PG Care Time/CCT Total # of Minutes Spent Total Time Spent with Patient: Total time spent is greater than 50% in coordination of care (as documented) at patient's floor/unit and/or counseling patient:
[2019-04-07] MEDS: ACETAMINOPHEN 500 MG TAB PO SCH ×2 (13:59→20:12)
--- NOTE | 2019-04-07 15:05 | Palliative Care Consultation ---
Date of Consultation April 07, 2019 Assessment & Plan (1) Goals of care, counseling/discussion: Patient is an 83-year-old female who is in relative good health until she had upper abdominal pain which she attributed to her hiatal hernia. Patient was evaluated and found to have pancreatic cancer of the head of the pancreas. Patient underwent Whipple procedure on 01/25/2019. Patient was having increased abdominal pain and presented to the emergency room on 04/06. Repeat scans showed local recurrence as well as thrombosis in the SMV. Patient is agreeable to try chemotherapy-this will be arranged as an outpatient. Patient's pain has been adequately controlled with IV morphine-she required 5 doses at 2 mg IV and 24 hours-which is approximately 30 mg of p.o. morphine. Patient was started on a fentanyl patch this a.m. at 12 mcg-she was comfortable on exam. Met with patient initially alone, her 2 daughters Erlinda and Maura arrived towards the end of the visit. Patient's significant other of 13 years,Gene, was not present. Discussed patient's goals-she felt she has lived a good life and has had very little health problems up until recently-she is willing to try chemo for her family. Patient has 5 children, 3 live locally. Patient has named her daughter Erlinda and her daughter Maura as her healthcare surrogate's. Patient's current CODE STATUS is DNR-discussed and filled out a POLST form. Reviewed with patient and her daughters the purpose of the POLST form. Patient given information for outpatient follow-up if needed depending on how her chemotherapy progresses and what side effects she counters. Reviewed with both daughters the conversation I had had with patient as well as the use of the POLST form. -Recurrent pancreatic cancer-patient to receive chemo as an outpatient-further plans per Dr. Garcia -Abdominal pain-may be due to recurrent disease, patient also has thrombosis in the SMV which could represent clot versus local tumor extension. Patient is on lipase as well as scheduled Tylenol, started on a fentanyl patch today. -Nausea/vomiting-continue PRN Zofran, p.o. as tolerated Will continue to follow and assist patient and family with medical decision making. Patient given information to set up an outpatient follow-up palliative clinic visit as needed (2) Pancreatic cancer: Pancreatic malignancy location: unspecified Qualified Code(s): C25.9 - Malignant neoplasm of pancreas, unspecified (3) Abdominal pain, epigastric: (4) Vomiting: Nausea presence: with nausea Vomiting Intractability: non- intractable Vomiting type: unspecified Qualified Code(s): R11.2 - Nausea with vomiting, unspecified History of Present Illness Reason for Consultation: Discuss goals of care Requesting Physician: Dr. Walton Attending Physician: Dariusz Walton MD History of Present Illness Patient is an 83-year-old female who is in relative good health until she had upper abdominal pain which she attributed to her hiatal hernia. Patient was evaluated and found to have pancreatic cancer of the head of the pancreas. Patient underwent Whipple procedure on 01/25/2019. Patient was having increased abdominal pain and presented to the emergency room on 04/06. Repeat scans showed local recurrence as well as thrombosis in the SMV. Patient is agreeable to try chemotherapy-this will be arranged as an outpatient. Patient's pain has been adequately controlled with IV morphine-she required 5 doses at 2 mg IV and 24 hours-which is approximately 30 mg of p.o. morphine. Patient was started on a fentanyl patch this a.m. at 12 mcg-she was comfortable on exam. Met with patient initially alone, her 2 daughters Erlinda and Maura arrived towards the end of the visit. Patient's significant other of 13 years,Gene, was not present. Discussed patient's goals-she felt she has lived a good life and has had very little health problems up until recently-she is willing to try chemo for her family. Patient has 5 children, 3 live locally. Patient has named her daughter Erlinda and her daughter Maura as her healthcare surrogate's. Patient's current CODE STATUS is DNR-discussed and filled out a POLST form. Reviewed with patient and her daughters the purpose of the POLST form. Patient given information for outpatient follow-up if needed depending on how her chemotherapy progresses and what side effects she counters. Allergies Allergy/AdvReac Type Severity Reaction Status Date / Time Sulfa (Sulfonamide Allergy Intermediate Rash Verified 04/05/19 18:03 Antibiotics) grass pollen-perennial rye, Allergy Unknown GRASS Verified 04/05/19 18:03 standar POLLEN-MILD ASTHMA latex Allergy Unknown STUFFY Verified 04/05/19 18:03 NOSE, SWOLLEN EYES cat dander Allergy Sneezing Verified 04/05/19 18:03 ciprofloxacin [From Cipro] AdvReac Weakness Verified 04/05/19 18:03 Home Medications Home Medications Medication Instructions Recorded Confirmed Type docusate sodium 100 mg PO BID 02/02/19 04/05/19 History Creon 1 cap PO AC 03/02/19 04/05/19 History acetaminophen 1,000 mg PO Q6H PRN 03/02/19 04/05/19 History Patient History Medical History Intractable pain (Acute) Local recurrence of pancreatic cancer (Acute) Arthritis GERD (gastroesophageal reflux disease) History of pancreatic cancer HAD WHIPPLES PROCEDURE - AYANNA; WILL BE ON CHEMO AFTER PORT INSERTION Hypothyroidism Surgical History History of hand surgery LEFT THUMB History of hysterectomy History of knee replacement BOTH History of pancreatic surgery History of repair of rectocele Hx of arthroscopic knee surgery Hx of hemorrhoidectomy Hx of shoulder surgery BOTH Hx of tonsillectomy Family History Father Family history of diabetes mellitus Other Heart disease Social History Preferred Language: [place] Communication Ability: Effective Senior Billing Consultant Required: No Beliefs That Will Affect Care: None Current Living Situation: Family Feels Safe at Home: Yes Safety Concerns: Feels Safe At This Time Smoking Status: Never smoker Do You Dip or Chew Tobacco: No Second Hand Exposure: No Tobacco Cessation Education Requested by Patient: No Hx Alcohol Use: No Hx Substance Use: No Review of Systems Review of Systems: Patient denies fever, chills, chest pain, shortness of breath. Positive for abdominal pain and nausea-patient reports pain control is improving Physical Exam Physical Exam: PE: Patient appears comfortable, no acute distress HEENT: EOMI, hearing within normal limits Respirations: Unlabored CV: Regular rate Abdomen: Diminished bowel sounds, no increased distention Neuro: Alert and oriented x4 Results & Data Vital Signs (Past 12 Hours) Vital Signs Temp Pulse Resp BP Pulse Ox 04/07/19 07:49 98.2 F 67 18 153/69 H 94 PG Care Time/CCT Total # of Minutes Spent Total Time Spent with Patient: Total time spent is greater than 50% in coordination of care (as documented) at patient's floor/unit and/or counseling patient: Time Spent Attending Total time spent 70 minutes with greater than 50% of the time at bedside- reviewed patient's current status, wishes and goals as well as completing a POLST form. Reviewed conversation with both daughters at bedside.
[2019-04-07] MEDS: CHECK FENTANYL PATCH PLACEMENT SCH (16:26)
[2019-04-07] MEDS ORDERED: SOD PHOSPHATE/SOD BIPHOSPHATE ENEMA 132 ML BTL PR STA (16:38)
[2019-04-07] MEDS ORDERED: METHYLNALTREXONE BROMIDE 12 MG/0.6 ML VIAL SQ ONE (17:00)
--- NOTE | 2019-04-07 17:15 | XRay Report ---
PA CHEST WITH ABDOMINAL SERIES CLINICAL HISTORY: Generalized abdominal pain. FINDINGS: A PA chest radiograph is compared to study dated 03/09/2019 and correlated with chest CT dated 04/04/20 19. A left internal jugular central venous infusion port is unchanged in position. The heart is enlar ged. The pulmonary vasculature is noncongested. Chronic interstitial thickening is similar to previou s. There is bibasilar scarring/atelectasis. No airspace consolidation or pleural effusion is identifi ed. No pneumothorax is seen. The skeletal structures are osteopenic. The bony thorax is grossly intac t. Degenerative change is noted throughout the thoracic spine. Supine and erect abdominal radiographs are correlated with abdominal CT dated 04/04/2019. There is a n onobstructed abdominal bowel gas pattern. No evidence of intraperitoneal free air is seen. Residual e nteric contrast is noted in the colon. This outlines several colonic diverticula. A calcification of the right upper quadrant is unchanged. Phleboliths are observed in the pelvis. The lumbosacral spine and bony pelvis appear intact. IMPRESSION: 1. Mild cardiac enlargement with no active disease in the chest. 2. Nonobstructed abdominal bowel gas pattern. Electronically signed by: Elias Iqbal M.D. 04/07/2019 5:14 PM
[2019-04-07] MEDS ORDERED: SENNA 8.6 MG TAB PO SCH (21:00)
[2019-04-08] MEDS: CHECK FENTANYL PATCH PLACEMENT SCH ×2 (00:08→07:59)
[2019-04-08] MEDS: OXYCODONE HCL IR 5 MG TAB (IMMEDIATE RELEASE) PO PRN ×3 (00:59→12:12)
[2019-04-08 07:29] VITALS: BP 146/68; TEMP 98.1; O2SAT 94
[2019-04-08] MEDS: SODIUM CHLORIDE 0.9% 1000ML 1,000 ML IV SCH (08:00)
[2019-04-08] MEDS: ACETAMINOPHEN 500 MG TAB PO SCH (08:00)
[2019-04-08] MEDS: DOCUSATE SODIUM 100 MG CAP PO SCH (08:01)
[2019-04-08] MEDS: PANCREAZE (LIPASE 10,500U) CAP PO SCH ×2 (08:01→12:12)
[2019-04-08] MEDS: ENOXAPARIN INJ 60 MG/0.6 ML SYR SQ SCH (08:01)
[2019-04-08 11:18] VITALS: PULSE 68
--- NOTE | 2019-04-08 12:42 | Hematology/Oncology Prog Note ---
Date of Service April 08, 2019 Assessment & Plan (1) Abdominal pain, epigastric: It remains unclear what the status of her disease is. However, the fact that her pain has improved on anticoagulation is encouraging. I am still waiting on the result of her CA 19-9, which should result tomorrow. If that number is up, that would strongly support the diagnosis of progressive disease. If it is down, however, that would argue in favor of her pain being related to the thrombosis and that the CT findings in her abdomen may reflect post-op changes and not cancer. We can address this question in the office next week. She already has an appointment with me on Thursday. She should remain on Lovenox after discharge and will likely need it indefinitely. Present on Admission?: Yes Subjective Ms. Ayoub is feeling better. Her pain is much improved, particularly since last night. She denies any nausea, bleeding, or other new symptoms. Review of Systems Constitutional: + fatigue, + weakness and + anorexia Ear, Nose, Mouth, Throat: no epistaxis Respiratory: no cough and no hemoptysis Cardiovascular: no edema Gastrointestinal: as per Subjective / HPI; no blood in stools Genitourinary: no hematuria Neurologic: + generalized weakness; no headache(s) Hematologic / Lymphatic: no easy bleeding and no easy bruising Physical Exam Constitutional: + thin and comfortable; no acute distress Eyes: + anicteric sclerae and EOM intact bilaterally ENMT: external ear and nose normal, oropharynx normal Respiratory: normal respiratory effort, lungs clear to auscultation Cardiovascular: RRR, no murmur, no edema Gastrointestinal (Abdomen): Inspection/Auscultation: normal bowel sounds; abdomen not distended Percussion/Palpation: abdomen soft; abdomen nontender Skin: no rashes, warm and dry Psychiatric: A+Ox3, euthymic affect Results & Data Vital Signs (Past 12 Hours) Vital Signs Temp Pulse Pulse Resp BP BP Pulse Ox 04/08/19 11:17 36.7 C 68 65 18 158/76 H 146/68 H 94 04/08/19 07:29 36.7 C 65 18 146/68 H 94
--- NOTE | 2019-04-08 17:25 | Discharge Summary ---
Date of Service April 08, 2019 Admission HPI Per Admitting Provider 83-year-old female with a history of pancreatic cancer. She underwent a Whipple's procedure in [place] in January of this year. She has not felt well since that time and has lost 40 pounds over the past several months. She has had progressively worsening mid back pain with anorexia and nausea. 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 She presents to the ED for pain control measures and will be placed in observation status with IV fluids and parenteral narcotics for pain control measures. Oncology consultation has been requested. Hospice consultation can be obtained tomorrow. She is a DNR patient. 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 Discharge Exam Constitutional well developed and average body habitus Eyes no conjunctival abnormality and no scleral abnormality Neck normal visual inspection and trachea midline Respiratory normal respiratory effort; no respiratory distress Auscultation: lungs clear to auscultation bilaterally Cardiovascular RRR, no murmur, no edema Discharge Data Allergies Allergy/AdvReac Type Severity Reaction Status Date / Time Sulfa (Sulfonamide Allergy Intermediate Rash Verified 04/05/19 18:03 Antibiotics) grass pollen-perennial rye, Allergy Unknown GRASS Verified 04/05/19 18:03 standar POLLEN-MILD ASTHMA latex Allergy Unknown STUFFY Verified 04/05/19 18:03 NOSE, SWOLLEN EYES cat dander Allergy Sneezing Verified 04/05/19 18:03 ciprofloxacin [From Cipro] AdvReac Weakness Verified 04/05/19 18:03 Consultations 04/05/19 18:32 ED Decision to Admit Stat 04/05/19 20:00 Consult Hematology Routine 04/07/19 10:53 Consult Palliative Care Routine Hospital Course (1) Local recurrence of pancreatic cancer : Associated with thrombosis of superior mesenteric vein. Oncology consultation is considering salvage palliative chemotherapy Plan of care consultations did discuss goals of care, pt interested in trying chemotherapy initially Therapeutic Lovenox dosing has been ordered patient's comfortable with Lovenox d osing for home (2) Intractable pain: Due to pancreatic cancer. Patient is agreeable to topical fentanyl 12 mcg will employ scheduled Tylenol and as needed oxycodone opiates (3) DVT prophylaxis: Therapeutic Lovenox subcu (4) DNR (do not resuscitate): Per patient and family request Total Time Total Time Spent Total Time Spent (In Minutes): greater than 30 minutes were required to prepare discharge Discharge Plan Discharge Items Patient Disposition: Home - Self-Care Reason For Visit: RECURRENT PANCREATIC CANCER,ABDOMINAL PAIN Discharge Diagnosis: thrombosis in vein in stomach abdominal pain constipation Discharge Goals: Decrease discomfort, Diagnostic testing and Improve disease control Activity: Resume your previous activity Non-emergency contact: Primary Care Provider and Oncologist Call non-emergency contact if: you have any medication questions Follow-up/Referrals: Esau Malloy MD [Primary Care Provider] - 04/14/19 1:00 pm (Please, follow up at Dr. Edward Rodriguez's office on April 14 at 1:00 pm. *If you need to change this appointment, call the office at [phone].) Diet: Regular Addtl Provider Instructions: please rest and recover assure good fluid intake Prescriptions: New sennosides [Senokot] 8.6 mg Tablet 17.2 mg PO HS Qty: 60 RF: 4 oxycodone 5 mg Tablet 10 mg PO Q4H PRN (Reason: pain) Qty: 30 RF: 0 enoxaparin 60 mg/0.6 mL Syringe 60 mg subcut Q12 Qty: 60 RF: 5 fentanyl 12 mcg/hr Patch 72 Hour 12 mcg transdermal Q3D Qty: 10 RF: 0 Continued docusate sodium 100 mg Capsule 100 mg PO BID RF: 0 acetaminophen 500 mg Capsule 1,000 mg PO Q6H PRN (Reason: Pain) RF: 0 Creon 3,000-9,500- 15,000 unit Capsule,Delayed Release(Dr/Ec) 1 cap PO AC RF: 0 Stand-Alone Forms: [facility] Discharge Orders: Discharge Order (Routine); Ordered 04/08/19 Ordered By: Dariusz Walton Admission Data Admit Date/Time: 04/06/19 13:18 Attending Provider: Dariusz Walton Admit Provider: Shade Carpenter Primary Care Provider: Esau Malloy Other Providers: Shade Carpenter ; Lucio Garcia ; Xochitl Alvarado Service: Oncology Other Interventions: Discharge Summary Assessment (RN) Last Done: 04/08/19 11:17 DC Date/Time DO NOT enter until pt leaves facility: 04/08/19 13:46
== END 2019-04-08 13:46 | disposition home or self-care (01) | DRG 436 ==
LOC: 4W 17:30 → ED 17:30 → SUATTDRO 18:43 → 4W 19:46